=== PATIENT | female | born 1980 | race Caucasian/White ===

== ENCOUNTER → 2016-06-08 | Outpatient (CLI) | payer OTHER ==
[~2016-06-08] MED LIST: METHADONE5 MG PO
[2016-06-08 10:49] LABS: HEMATOCRIT 32.9 % (36.0-46.0); MCH 30.9 PG (29.0-34.0); MCHC 33.7 G/DL (30.0-36.0); MCV 91.6 FL (83-99); MEAN PLAT.VOLUME 9.7 uM^3 (9.5-12.4); PLATELET COUNT 196 K/uL (156-360); RBC DIS.WIDTH-CV 12.6 % (11.8-14.6); RBC DIS.WIDTH-SD 42.8 % (39-53); RED BLOOD COUNT 3.59 M/uL (3.80-5.20); WHITE BLOOD COUNT 4.7 K/uL (4.1-10.2)
[2016-06-08 11:00] LABS: PROTHROMBIN TIME 10.3 (9.2-11.2)
== END | disposition home or self-care (01) ==
LOC: OPR 09:58 → EDSTATUS 10:00 → OPR 10:00
PROVIDERS: Physician Assistant
PROC: 00BX3ZX Excision of Thoracic Spinal Cord, Percutaneous Approach, Diagnostic (ICD-10-PCS; principal; 2016-06-08)
DX: R22.2 Localized swelling, mass and lump, trunk (principal); M54.9 Dorsalgia, unspecified
CPT/HCPCS: 77012; 85027; 85610; 85730; 88160; J3010